=== PATIENT | female | born 1960 | race American Indian/Alaskan Native ===

== ENCOUNTER 2020-12-09 12:52 | Emergency (ER) | payer BC ==
[2020-12-09 13:10] VITALS: BP 160/93
[2020-12-09] MEDS ORDERED: ASPIRIN 325 MG TAB PO ONE (14:52)
--- NOTE | 2020-12-09 15:00 | Emergency Department Report ---
<GILMER LU - Last Filed: 12/09/20 19:05> ED General Adult HPI - General Chief complaint: Chest Pain Stated complaint: CHEST PAIN Time Seen by Provider: 12/09/20 14:43 Source: patient Mode of arrival: Ambulatory Limitations: No Limitations - History of Present Illness Initial comments: 60-year-old female with a past medical history of hypertension, obesity and CHF(she developed it post 19 yrs ago, she followed up with cardiology and was cleared but she has continued to take the lasix) presents to the ER today with complaints of wheezing, left upper chest pain, and lower extremity swelling. Patient states that she started wheezing about 2 weeks ago and she is also been having shortness of breath mainly on exertion for the past 2 weeks. She states that she has chronic lower extremity swelling but noticed increasing swelling this past weekend. She states that it typically goes down with leg elevation but not recently. She states that this morning she started with left upper chest pain which she describes as sharp and worse when she breathes and and on palpation. She states when the pain flares up she holds it and that makes it better. She denies any chest wall injury. Patient was seen at an [facility] for symptoms today and she was sent to the ER. She denies history of DVT/PE, [place]/CAD, lung disease or tobacco use and denies renal disease or diabetes. She denies any hormone use, immobilization, hx of CA or leg injury MD Complaint: Wheezing, chest pain, lower extremity swelling - Related Data Allergies Allergy/AdvReac Type Severity Reaction Status Date / Time No Known Allergies Allergy Verified 12/09/20 13:05 ED Review of Systems Comment: All other systems reviewed and negative Constitutional: denies: chills, diaphoresis, fever, malaise Eyes: denies: eye pain, eye discharge, vision change ENT: denies: ear pain, throat pain Respiratory: shortness of breath, SOB with exertion. denies: cough, wheezing Cardiovascular: chest pain Endocrine: no symptoms reported Gastrointestinal: denies: abdominal pain, nausea, vomiting, diarrhea, constipation, hematemesis, melena, hematochezia Musculoskeletal: denies: back pain, joint swelling, arthralgia, myalgia Skin: denies: rash, lesions, change in color, change in hair/nails, pruritus Neurological: denies: headache, weakness, paresthesias Psychiatric: denies: anxiety, depression, auditory hallucinations, visual hallucinations, homicidal thoughts, suicidal thoughts Hematological/Lymphatic: denies: easy bleeding, easy bruising, swollen glands ED Past Medical Hx - Past Medical History Hx Hypertension: Yes Hx Congestive Heart Failure: Yes - Surgical History Past Surgical History?: No - Social History Smoking Status: Never Smoker Substance Use Type: None ED Physical Exam - General Limitations: No Limitations General appearance: alert, in no apparent distress, obese - Head Head exam: Present: atraumatic, normocephalic, normal inspection - Eye Eye exam: Present: normal appearance, PERRL, EOMI Pupils: Present: normal accommodation - ENT ENT exam: Present: normal exam, mucous membranes moist - Neck Neck exam: Present: normal inspection, full ROM - Respiratory Respiratory exam: Present: normal lung sounds bilaterally, chest wall tenderness (Left upper chest wall). Absent: respiratory distress, wheezes, rales, rhonchi, stridor - Cardiovascular Cardiovascular Exam: Present: regular rate, normal rhythm, normal heart sounds - GI/Abdominal GI/Abdominal exam: Present: soft. Absent: distended, tenderness, guarding, rebound - Extremities Exam Extremities exam: Present: full ROM, normal capillary refill, pedal edema, calf tenderness, other (Nonpitting edema noted to bilateral lower extremity; diffuse tenderness bilateral lower extremity; no apparent erythema or ecchymosis; sensation bilateral extremity intact. Dorsalis pedis pulse normal. Cap refill normal) - Neurological Exam Neurological exam: Present: alert, oriented X3, CN II-XII intact, normal gait - Psychiatric Psychiatric exam: Present: normal affect, normal mood - Skin Skin exam: Present: intact ED Medical Decision Making - Lab Data Result diagrams: 12/09/20 15:54 12/09/20 15:54 - EKG Data -: EKG Interpreted by Sd EKG shows normal: sinus rhythm Rate: normal (93) - EKG Data Interpretation: no acute changes, LVH - Radiology Data Radiology results: report reviewed Patient: SARAH WISE MR#: [id number] : 1960 Acct:[id number] Age/Sex: 60 / F ADM Date: 12/09/20 Loc: ED Attending Dr: Ordering Physician: GILMER LU Date of Service: 12/09/20 Procedure(s): XR chest routine 2V Accession Number(s): [id number] cc: GILMER LU Fluoro Time In Minutes: CHEST 2 VIEWS INDICATION / CLINICAL INFORMATION: Chest Pain. COMPARISON: None available. FINDINGS: SUPPORT DEVICES: None. HEART / MEDIASTINUM: No significant abnormality. LUNGS / PLEURA: No significant pulmonary or pleural abnormality. No pneumothorax. ADDITIONAL FINDINGS: No significant additional findings. IMPRESSION: No acute cardiopulmonary abnormality. Signer Name: Randolph Prado MD Signed: 12/09/2020 3:23 PM Workstation Name: [id number] Transcribed By: SS Dictated By: RANDOLPH PRADO Electronically Authenticated By: RANDOLPH PRADO Signed Date/Time: 12/09/201522 DD/ 22 TD/TT: Patient: SARAH WISE MR#: [id number] : 1960 Acct:[id number] Age/Sex: 60 / F ADM Date: 12/09/20 Loc: ED Attending Dr: Ordering Physician: GILMER LU Date of Service: 12/09/20 Procedure(s): VL venous duplex LE BILAT Accession Number(s): [id number] cc: GILMER LU DUPLEX DOPPLER LOWER EXTREMITY VEINS, BILATERAL INDICATION: worsening LE swelling. TECHNIQUE: Duplex doppler imaging was performed through the veins of both lower extremities using venous compression and other maneuvers. COMPARISON: No relevant prior imaging study available. FINDINGS: Right Common femoral vein: Negative. Right Superficial femoral vein: Negative. Right Popliteal vein: Negative. Right Calf veins: Negative. Left Common femoral vein: Negative. Left Superficial femoral vein: Negative. Left Popliteal vein: Negative. Left Calf veins: Negative. Additional findings: Nonspecific bilateral subcutaneous edema is noted.. IMPRESSION: No sonographic evidence for DVT in either lower extremity. Signer Name: Johnny Lyons Jr, MD Signed: 12/09/2020 3:44 PM Workstation Name: [id number] Transcribed By: TTR Dictated By: OJHNNY LYONS JR, MD Electronically Authenticated By: JOHNNY LYONS JR, MD Signed Date/Time: 12/09/20 1544 DD/ 42 TD/TT: - Medical Decision Making labs unremarkable including negative initial trop; EKH show and is consistent with LVH but otherwise no STEMI or any other acute ischemic changes or significant dysrhythmias. Chest x-ray shows nothing acute. Venous Doppler negative for DVT both legs. CT is ordered and pending. Second troponin pending. Discussed initial work-up results with patient. She is currently resting comfortably and is not in any acute distress. He is neurologically intact and has been observed ambulating the ER with a normal gait and no respiratory distress. Discussed the remaining diagnostic testing and the reason for doing so with patient. She expressed understanding agree with plan. 1907: The patient's care has been transferred to and accepted by[Alexia Nair PA-C]. We discussed: The patient's chief complaints; labs and imaging that have been completed and those that are still pending; The accepting provider will follow up on all pending labs and imaging and make any necessary changes to the current impression and/or treatment plan. The accepting physician/midlevel is now responsible for the patient's care and final disposition. ED Disposition Clinical Impression: Leg edema, Chest wall pain, Atypical chest pain, Bronchitis Disposition: - TO HOME OR SELFCARE Condition: Stable Instructions: Nonspecific Chest Pain, Adult, Chronic Bronchitis (ED) Additional Instructions: V/Q scan is negative for any abnormalities chest x-ray is within normal limits. Labs are stable. Vital signs are within normal limits. I recommended she follow- up with your primary care provider. Continue with all chronic medications. Elevate your feet. 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 Referrals: DEIRDRE COYNE MD [Primary Care Provider] - 3-5 Days Forms: Work/School Release Form(ED) <JIM NAIR - Last Filed: 12/09/20 21:59> ED General Adult HPI - History of Present Illness Initial comments: Patient has been reassessed by this provider. There is no wheezing appreciated heart rate is regular rate and rhythm. Abdomen soft nontender nondistended normal bowel sounds. Bilateral lower leg are edematous and shiny very little hair. VQ is negative. Discussed with patient she will be discharged home to take her chronic medications follow-up with her primary care provider and her winder fixer. Patient verbalized understanding. ED Review of Systems ROS: Stated complaint: CHEST PAIN Other details as noted in HPI ED Course Vital Signs 12/09/20 13:05 Temperature 98.3 F Pulse Rate 97 H Respiratory 20 Rate Blood Pressure 160/93 O2 Sat by Pulse 96 Oximetry ED Medical Decision Making - Lab Data Result diagrams: 12/09/20 15:54 12/09/20 15:54 - Radiology Data [facility] [address] [place] [address] Nuclear Medicine Report Signed Patient: SARAH WISE MR#: [id number] : 1960 Acct:[id number] Age/Sex: 60 / F ADM Date: 12/09/20 Loc: ED Attending Dr: Ordering Physician: CUBA PEPE Date of Service: 12/09/20 Procedure(s): NM perfusion only lung scan Accession Number(s): [id number] cc: CUBA PEPE NUCLEAR MEDICINE PERFUSION ONLY LUNG SCAN. History: SOB, Chest pain l side cp Comparison: Chest radiograph dated 12/09/2020. Procedure: The patient was administered 4.5 MCi of technetium 99m labeled MAA intravenously. Findings: No focal segmental defects are seen on perfusion imaging. Impression: Normal V/Q scan. Signer Name: Ralph Corea MD Signed: 12/09/2020 9:35 PM Workstation Name: [id number] Transcribed By: Dictated By: RALPH COREA Electronically Authenticated By: RALPH COREA Signed Date/Time: 12/09/202134 DD/ 32 TD/TT: Print Cancel - Medical Decision Making Not able to get INT. ordered VQ scan. Critical care attestation.: If time is entered above; I have spent that time in minutes in the direct care of this critically ill patient, excluding procedure time. ED Disposition Is pt being admited?: No Does the pt Need Aspirin: No
--- NOTE | 2020-12-09 15:49 | XRay Report ---
CHEST 2 VIEWS INDICATION / CLINICAL INFORMATION: Chest Pain. COMPARISON: None available. FINDINGS: SUPPORT DEVICES: None. HEART / MEDIASTINUM: No significant abnormality. LUNGS / PLEURA: No significant pulmonary or pleural abnormality. No pneumothorax. ADDITIONAL FINDINGS: No significant additional findings. IMPRESSION: No acute cardiopulmonary abnormality. Signer Name: Charlie Prado MD Signed: 12/09/2020 3:23 PM Workstation Name: [id number]
--- NOTE | 2020-12-09 16:06 | Vascular Lab Report ---
DUPLEX DOPPLER LOWER EXTREMITY VEINS, BILATERAL INDICATION: worsening LE swelling. TECHNIQUE: Duplex doppler imaging was performed through the veins of both lower extremities using ve nous compression and other maneuvers. COMPARISON: No relevant prior imaging study available. FINDINGS: Right Common femoral vein: Negative. Right Superficial femoral vein: Negative. Right Popliteal vein: Negative. Right Calf veins: Negative. Left Common femoral vein: Negative. Left Superficial femoral vein: Negative. Left Popliteal vein: Negative. Left Calf veins: Negative. Additional findings: Nonspecific bilateral subcutaneous edema is noted.. IMPRESSION: No sonographic evidence for DVT in either lower extremity. Signer Name: Johnny Lyons Jr, MD Signed: 12/09/2020 3:44 PM Workstation Name: [id number]
[2020-12-09 16:29] LABS: INR 1.02 (0.87-1.13)
[2020-12-09 16:30] LABS: Alanine Aminotransferase 17 units/L (7-56); Albumin 4.2 g/dL (3.9-5); Blood Urea Nitrogen 12 mg/dL (7-17); Calcium 9.6 mg/dL (8.4-10.2); Hemolysis Index 5; Partial Thromboplastin Time 30.7 Sec. (24.2-36.6)
[2020-12-09 16:31] LABS: BUN/Creatinine Ratio 17
[2020-12-09 16:36] LABS: Basophils # (Auto) 0.2 K/mm3 (0.0-0.1); Basophils % (Auto) 1.5 % (0.0-1.8); Eosinophils # (Auto) 0.4 K/mm3 (0.0-0.4); Eosinophils % (Auto) 3.9 % (0.0-4.3); Hematocrit 40.6 % (30.3-42.9); Hemoglobin 13.6 gm/dl (10.1-14.3); Mean Corpuscular HGB Conc 34 % (30-34); Mean Corpuscular Volume 87 fl (79-97); Monocytes # (Auto) 0.7 K/mm3 (0.0-0.8); Monocytes % (Auto) 7.3 % (0.0-7.3); Platelet Count 244 K/mm3 (140-440); Red Blood Count 4.66 M/mm3 (3.65-5.03); Red Cell Distribution Width 14.6 % (13.2-15.2)
--- NOTE | 2020-12-09 17:42 | Electrocardiograph Report ---
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
--- NOTE | 2020-12-09 21:40 | Nuclear Medicine Report ---
NUCLEAR MEDICINE PERFUSION ONLY LUNG SCAN. History: SOB, Chest pain l side cp Comparison: Chest radiograph dated 12/09/2020. Procedure: The patient was administered 4.5 MCi of technetium 99m labeled MAA intravenously. Findings: No focal segmental defects are seen on perfusion imaging. Impression: Normal V/Q scan. Signer Name: Ralph Rincon MD Signed: 12/09/2020 9:35 PM Workstation Name: [id number]
== END 2020-12-09 22:09 | disposition home or self-care (01) ==
LOC: ED 12:52
DX: J40 Bronchitis, not specified as acute or chronic (principal); R60.9 Edema, unspecified; R07.89 Other chest pain; I11.0 Hypertensive heart disease with heart failure; I50.9 Heart failure, unspecified
CPT/HCPCS: 36415; 71046; 78580; 80053; 83880; 84484; 85025; 85610; 85730; 93005; 93970; 99284; A9540